=== PATIENT | male | born 1980 | race Caucasian/White ===

== ENCOUNTER → 2020-05-23 11:02 | Outpatient (BNVA) | payer OTHER, SELFPAY | PROVIDERS: Family Provider Internal Medicine; PCP Occupational Therapy Assistant; Visit Provider Internal Medicine Rheumatology | DX: M35.9 Systemic involvement of connective tissue, unspecified (principal); Z79.899 Other long term (current) drug therapy; R76.8 Other specified abnormal immunological findings in serum; D47.2 Monoclonal gammopathy; R60.0 Localized edema | CPT/HCPCS: 36415; 80076; 82565; 85025; 85651; 86140; 99214 ==

== ENCOUNTER 2020-06-01 08:19 | Outpatient (CLI) | payer OTHER, SELFPAY ==
[2020-06-01 09:13] LABS: Basophils # 0.1 10^3/uL (0.0-0.1); Basophils % 1.3 %; Eosinophils # 0.2 10^3/uL (0.0-0.8); Eosinophils % 2.7 %; Hemoglobin 14.5 g/dL (11.7-16.6); Lymphocytes # 2.2 10^3/uL (0.8-4.8); Lymphocytes % 31.3 %; Mean Platelet Volume 12.3 fL (7.4-10.4); Monocytes # 0.9 10^3/uL (0.2-0.9); Monocytes % 12.9 %; Neutrophils # 3.64 10^3/uL (1.8-7.7); Neutrophils % 51.5 %; Nucleated Red Blood Cells % 0 %; Platelet Count 284 10^3/cmm (130-400); Red Blood Count 4.68 10^6/uL (4.1-5.3); Red Cell Distribution Width 13.1 % (12.1-15.1); White Blood Count 7.1 10^3/uL (4.0-10.0)
[2020-06-01 09:33] LABS: Alanine Aminotransferase 51 U/L (0-41); Albumin Level 4.6 g/dL (3.5-5.2); Alkaline Phosphatase 63 IU/L (40-130); Anion Gap 16.1 (5-19); Aspartate Amino Transferase 42 U/L (0-40); Blood Urea Nitrogen 15 mg/dL (6-20); Calcium 9.6 mg/dL (8.5-10.5); Carbon Dioxide 26 mmol/L (22-29); Chloride 101 mmol/L (98-107); Globulin 3.6 g/dL (1.3-4.6); Glomerular Filtration Rate 93.5 mL/min (90-130); Glucose 111 mg/dL (65-115); Immunoglobulin IGA 203 mg/dL (70-400); Immunoglobulin IGG 1776 mg/dL (700-1600); Immunoglobulin IGM 62 mg/dL (40-230); Lactate Dehydrogenase 265 U/L (135-225); Osmolality Calculated 290 mOsm/kg (285-295); Potassium 4.1 mmol/L (3.5-5.1); Sodium 139 mmol/L (136-145); Total Bilirubin 0.2 mg/dL (0.15-1.2); Total Protein 8.2 g/dL (6.6-8.7)
[2020-06-02 07:48] LABS: PROTEIN, TOTAL 7.6 g/dL (6.1-8.1)
[2020-06-02 12:22] LABS: KAPPA LIGHT CHAIN, FREE, SERUM 22.6 mg/L (3.3-19.4); KAPPA/LAMBDA LIGHT CHAINS FREE 1.78 (0.26-1.65); LAMBDA LIGHT CHAIN, FREE, SERU 12.7 mg/L (5.7-26.3)
[2020-06-02 13:22] LABS: ABNORMAL PROTEIN BAND 1 1.2 g/dL (NONE DETECTED); ALBUMIN 4.3 g/dL (3.8-4.8); ALPHA 1 GLOBULIN 0.3 g/dL (0.2-0.3); ALPHA 2 GLOBULIN 0.7 g/dL (0.5-0.9); BETA 1 GLOBULIN 0.4 g/dL (0.4-0.6); BETA 2 GLOBULIN 0.3 g/dL (0.2-0.5); GAMMA GLOBULIN 1.6 g/dL (0.8-1.7)
== END 2020-06-01 08:20 | disposition home or self-care (01) ==
LOC: ONCMED 08:22
PROVIDERS: PCP Internal Medicine; Visit Provider Internal Medicine Medical Oncology
DX: D47.2 Monoclonal gammopathy (principal)
CPT/HCPCS: 36415; 80053; 82784; 83615; 83883; 84155; 84165; 85025

== ENCOUNTER 2020-06-13 15:08 | Outpatient (CLI) | payer OTHER, SELFPAY ==
--- NOTE | 2020-06-17 13:39 | ONC FU_ITS ---
Dr. Medina Patient Follow-Up Note Patient: Larry De La Cruz Unit #: [id number]: 1980 Dicatated By: Kevan Medina M.D.Date of Visit:Jun 13, 2020 Onc Med Follow-up/Prog Note Chief Complaint: Monoclonal gammopathy. History of Present Illness: This is a 39 year-old man with IgG kappa monoclonal gammopathy. He had been seen by Dr. Bellamy in July 2016 because of neuropathy symptoms. At that time he also was having significant joint pain and stiffness. His evaluation for neuropathy included a serum protein electrophoresis which showed an IgG kappa monoclonal protein quantitating at 0.95 g/dL. He also had a significantly elevated RA titer at 28.9 IU/mL. His DNA profile showed an elevated PSYCHOLOGY TECH IgG antibody of greater than 100.0 EU/mL. He was seen by Dr. Ruthann Arthur for rheumatology consultation 10/16/2016. He was diagnosed at that time with rheumatoid arthritis and possible mixed connective tissue disease. He began treatment with methotrexate with subsequent addition of hydroxychloroquine. He was seen here by Dr. Antonio on 11/12/2016 for evaluation of the monoclonal gammopathy. His subsequent laboratory evaluation on 11/28/2016 included CBC showing hemoglobin 15.0 g, white blood cell count 8000, and platelet count 238,000. Comprehensive metabolic profile showed normal renal function BUN 18 and creatinine 1.0 mg/dL. The calcium was 8.8 mg/dL with albumin 4.1 g/dL. Repeat protein electrophoresis showed IgG kappa monoclonal protein quantitating at 1.03 g/dL. Quantitative immunoglobulins included IgG 1800.00 mg/dL, IgA 170.00 mg/dL, and IgM 43.00 mg/dL. The free kappa light chain was elevated at 19.81 mg/L with the free lambda 10.35 mg/L and mildly elevated kappa/lambda ratio at 1.91. His 24-hour urine showed a total protein excretion of 105 mg with no monoclonal protein detected. Skeletal survey showed no radiographic evidence of multiple myeloma. I had seen him for a follow-up visit on 12/19/2016. Given those findings, I did not feel there was any definite indication for bone marrow aspiration/biopsy, and I just recommended observation/expectant management. As of his follow-up visit on 05/10/2019 he appeared stable clinically. His repeat protein electrophoresis on 05/17/2020 showed his M protein stable at 1.1 g/dL. He has no other medical illnesses. His surgeries include splenectomy in 1996 and tonsillectomy in 1997. He had surgery for Meckel's diverticulum in 1991. He is a nonsmoker. He is seen for a scheduled visit. He has been feeling pretty good generally, though he says his energy is not as great. He is able to do light work. ECOG score is 1. He has good appetite. He has not had fever. He occasionally has sweating at night. He has some sinus drainage with occasional cough. He does not complain of shortness of breath or chest pain. He has acid reflux, but it is managed adequately with famotidine. He has no other GI or complaints. He has some joint pain, but not a lot. He has no focal neurologic symptoms. Medications: Celecoxib 1 (200 mg) Capsule Oral daily PRN, Multivitamin Adult 1 Tablet Oral daily, Plaquenil 1 Tablet (of 200 mg) Oral daily, Testone CIK (200 mg/mL) Intramuscular Take as Directed, Vitamin D 1 Tablet Oral daily Allergies: Compazine and Reglan. Review of Systems: Constitutional - His energy is pretty good, but less than normal. He is able to light to moderate outside work. His appetite is good and his weight is stable. No fever, night sweats, or hot flashes. ECOG score is 1, ENMT - He has chronic sinus congestion/drainage. No mouth sores. No sore throat or difficulty swallowing, Hematologic/Lymphatic - No abnormal bruising or bleeding, Respiratory - No shortness of breath. He has an occasional cough. No pleuritic pain or hemoptysis, Cardiovascular - No angina pain. No palpitations, Gastrointestinal - No nausea or vomiting. His acid reflux is adequately controlled with famotidine. No diarrhea or constipation. No blood in the stool or black stools, Genitourinary (M) - No dysuria or hematuria. No urinary frequency. No urgency or incontinence, Musculoskeletal - He has generalized joint pain, Integumentary - No skin complication, Neurologic - No headache or dizziness. No numbness or tingling. No other focal neurologic symptoms, Psychiatric - No anxiety or depression. No insomnia. Vital Signs: Performed on Jun 13, 2020 15:26 Height - 71.00 in Weight - 250.8 lbs (LOW) BSA - 2.32 sq.m BMI - 34.98 (HIGH) Temperature - 97.5 F (LOW) Pulse - 74 /min Respiration - 17 /min BP - 167/90 mm(hg) (HIGH) O2 Sat - 97 % Pain - 0 Physical Examination: Constitutional - He looks good generally, Eyes - Sclerae nonicteric. Conjunctivae clear, ENMT - No lesions noted in the oral cavity, Hematologic/Lymphatic - No cervical, clavicular, or axillary adenopathy, Respiratory - Lungs are clear with good air movement bilaterally, Cardiovascular - Heart rhytm is regular. There is no murmur, gallop, or rub noted, Abdomen - Soft. Liver is not enlarged. There is no abdominal mass or ascites noted and there is no inguinal adenopathy, Extremities - No edema, Neurologic - No focal neurologic deficits noted. Lab/Imaging: Test performed on Jun 01, 2020 08:44 LDH (Total) 265 U/L Sodium 139 mmol/L Potassium 4.1 mmol/L Chloride 101 mmol/L CO2 26 mmol/L Anion Gap 16.1 BUN 15 mg/dL Creatinine 0.9 mg/dL Cr Clearance (Est) 176.2600 mL/min eGFR 93.5 mL/min Glucose 111 mg/dL Osmolality - Calculated 290 mOsm/kg Calcium 9.6 mg/dL Protein, Total 8.2 g/dL Albumin 4.6 g/dL Globulin 3.6 g/dL Bilirubin, Total 0.2 mg/dL ALT (SGPT) 51 U/L AST (SGOT) 42 U/L Alkaline Phosphatase 63 IU/L WBC 7.1 10 3/uL RBC 4.68 10 6/uL HGB 14.5 g/dL HCT 44.0 % MCV 94.0 fL MCH 31.0 pg MCHC 33.0 g/dL RDW 13.1 % Platelet Count 284 10 3/cmm MPV 12.3 fL Neutrophils 3.64 10 3/uL Lymphocytes 2.2 10 3/uL Monocytes 0.9 10 3/uL Eosinophils 0.2 10 3/uL Basophils 0.1 10 3/uL Neutrophil % 51.5 % Lymphocyte % 31.3 % Monocyte % 12.9 % Eosinophil % 2.7 % Basophils % 1.3 % NRBC % 0 % IgG 1776 mg/dL [place] Free Light Chains 22.6 mg/L Lambda Free Light Chains 12.7 mg/L IgA 203 mg/dL [place]/Lambda Free Ratio 1.78 IgM 62 mg/dL His protein electrophoresis shows M protein stable at 1.2 g/dL. Impression: 1. Patient with IgG kappa monoclonal gammopathy of undetermined significance. It was discovered in association with an autoimmune disorder. There wss no clinical evidence to suggest myelomahim a and observation/expectant management was recommended. 2. He was diagnosed with rheumatoid arthritis and possible mixed connective tissue disease, which is being adequately managed with methotrexate and hydroxychloroquine. 3. He has a history of previous splenectomy. During follow-up he has been doing well with no significant increase in his M protein and no evidence clinically of myeloma. Plan: He remains on observation/expectant management. I will see him again in one year. Signed By: Kevan Medina M.D. <<Signature on File>>
== END 2020-06-13 15:09 | disposition home or self-care (01) ==
LOC: ONCMED 15:10
PROVIDERS: PCP Internal Medicine; Visit Provider Internal Medicine Medical Oncology
DX: D47.2 Monoclonal gammopathy (principal); M06.9 Rheumatoid arthritis, unspecified; Z90.81 Acquired absence of spleen; Z79.899 Other long term (current) drug therapy
CPT/HCPCS: G0463

== ENCOUNTER → 2020-11-21 08:55 | Outpatient (BNVA) | payer OTHER, SELFPAY | PROVIDERS: PCP Internal Medicine; Visit Provider Internal Medicine Rheumatology | DX: R76.8 Other specified abnormal immunological findings in serum (principal); M19.90 Unspecified osteoarthritis, unspecified site; Z79.899 Other long term (current) drug therapy; R60.0 Localized edema; D47.2 Monoclonal gammopathy | CPT/HCPCS: 99214 ==

== ENCOUNTER 2020-11-21 09:47 | Outpatient (CLI) | payer OTHER, SELFPAY ==
[2020-11-21 10:28] LABS: Basophils # 0.1 10^3/uL (0.0-0.1); Basophils % 2.2 %; Eosinophils # 0.2 10^3/uL (0.0-0.8); Eosinophils % 3.2 %; Hematocrit 45.2 % (42.0-52.0); Hemoglobin 15.2 g/dL (11.7-16.6); Lymphocytes # 2.1 10^3/uL (0.8-4.8); Lymphocytes % 35.8 %; Mean Corpuscular HGB Conc 33.6 g/dL (30.0-36.0); Mean Corpuscular Volume 92.2 fL (80-94); Mean Platelet Volume 11.6 fL (7.4-10.4); Monocytes % 16.8 %; Neutrophils # 2.48 10^3/uL (1.8-7.7); Neutrophils % 41.7 %; Nucleated Red Blood Cells % 0 %; Platelet Count 287 10^3/cmm (130-400)
[2020-11-21 10:44] LABS: Alanine Aminotransferase 41 U/L (0-41); Albumin Level 4.6 g/dL (3.5-5.2); Alkaline Phosphatase 54 IU/L (40-130); C Reactive Protein 2.1 mg/L (0.0-4.9); Globulin 3.6 g/dL (1.3-4.6); Glomerular Filtration Rate 124.3 mL/min (90-130); Total Bilirubin 0.4 mg/dL (0.15-1.2); Total Protein 8.2 g/dL (6.6-8.7)
[2020-11-21 10:59] LABS: Aspartate Amino Transferase 37 U/L (0-40)
[2020-11-21 11:10] LABS: Slide Review Slide Review Perform
== END 2020-11-21 09:48 | disposition home or self-care (01) ==
LOC: LAB 09:55
PROVIDERS: PCP Internal Medicine; Visit Provider Internal Medicine Rheumatology
DX: R76.8 Other specified abnormal immunological findings in serum (principal); Z79.899 Other long term (current) drug therapy
CPT/HCPCS: 36415; 80076; 82565; 85025; 86140

== ENCOUNTER → 2021-05-22 09:20 | Outpatient (BNVA) | payer OTHER, SELFPAY | PROVIDERS: PCP Internal Medicine; Visit Provider Internal Medicine Rheumatology | DX: R76.8 Other specified abnormal immunological findings in serum (principal); M19.90 Unspecified osteoarthritis, unspecified site; Z79.899 Other long term (current) drug therapy; R60.0 Localized edema; D47.2 Monoclonal gammopathy | CPT/HCPCS: 99214 ==

== ENCOUNTER 2021-05-30 14:07 | Outpatient (CLI) | payer OTHER, SELFPAY ==
[2021-05-30 14:59] LABS: Basophils # 0.1 10^3/uL (0.0-0.1); Basophils % 1.8 %; Eosinophils # 0.2 10^3/uL (0.0-0.8); Eosinophils % 2.9 %; Hematocrit 42.7 % (42.0-52.0); Hemoglobin 14.6 g/dL (11.7-16.6); Lymphocytes # 2.1 10^3/uL (0.8-4.8); Lymphocytes % 31.9 %; Mean Corpuscular HGB Conc 34.2 g/dL (30.0-36.0); Mean Corpuscular Hemoglobin 31.9 pg (28.0-34.0); Mean Corpuscular Volume 93.2 fl (80-94); Mean Platelet Volume 12.5 fL (7.4-10.4); Monocytes % 15.6 %; Neutrophils # 3.11 10^3/uL (1.8-7.7); Neutrophils % 47.5 %; Nucleated Red Blood Cells % 0 %; Platelet Count 262 10^3/cmm (130-400); Red Blood Count 4.58 10^6/uL (4.1-5.3); Red Cell Distribution Width 13.2 % (12.1-15.1); White Blood Count 6.6 10^3/uL (4.0-10.0)
[2021-05-30 15:28] LABS: Alanine Aminotransferase 29 U/L (0-41); Albumin Level 4.4 g/dL (3.5-5.2); Albumin Level 4.5 g/dL (3.5-5.2); Alkaline Phosphatase 53 IU/L (40-130); Alkaline Phosphatase 55 IU/L (40-130); Anion Gap 15.8 (5-19); Aspartate Amino Transferase 26 U/L (0-40); Aspartate Amino Transferase 29 U/L (0-40); Blood Urea Nitrogen 13 mg/dL (6-20); C Reactive Protein 2.1 mg/L (0.0-4.9); Calcium 9.3 mg/dL (8.5-10.5); Carbon Dioxide 24 mmol/L (22-29); Chloride 102 mmol/L (98-107); Globulin 3.5 g/dL (1.3-4.6); Globulin 3.7 g/dL (1.3-4.6); Glomerular Filtration Rate 106.5 mL/min (90-130); Glucose 87 mg/dL (65-115); Immunoglobulin IGA 202 mg/dL (70-400); Immunoglobulin IGG 1770 mg/dL (700-1600); Immunoglobulin IGM 65 mg/dL (40-230); Lactate Dehydrogenase 181 U/L (135-225); Osmolality Calculated 285 mOsm/kg (285-295); Potassium 3.8 mmol/L (3.5-5.1); Sodium 138 mmol/L (136-145); Total Bilirubin 0.3 mg/dL (0.15-1.2); Total Bilirubin 0.4 mg/dL (0.15-1.2); Total Protein 7.9 g/dL (6.6-8.7); Total Protein 8.2 g/dL (6.6-8.7)
[2021-05-31 06:03] LABS: PROTEIN, TOTAL 7.8 g/dL (6.1-8.1)
[2021-05-31 13:02] LABS: KAPPA LIGHT CHAIN, FREE, SERUM 24.3 mg/L (3.3-19.4); KAPPA/LAMBDA LIGHT CHAINS FREE 1.83 (0.26-1.65); LAMBDA LIGHT CHAIN, FREE, SERU 13.3 mg/L (5.7-26.3)
[2021-05-31 15:41] LABS: ABNORMAL PROTEIN BAND 1 1.2 g/dL (NONE DETECTED); ALBUMIN 4.5 g/dL (3.8-4.8); ALPHA 1 GLOBULIN 0.3 g/dL (0.2-0.3); ALPHA 2 GLOBULIN 0.6 g/dL (0.5-0.9); BETA 1 GLOBULIN 0.4 g/dL (0.4-0.6); BETA 2 GLOBULIN 0.4 g/dL (0.2-0.5); GAMMA GLOBULIN 1.7 g/dL (0.8-1.7)
== END 2021-05-30 14:08 | disposition home or self-care (01) ==
PROVIDERS: Internal Medicine Rheumatology; PCP Internal Medicine; Visit Provider Internal Medicine Medical Oncology
DX: D47.2 Monoclonal gammopathy (principal)
CPT/HCPCS: 36415; 80053; 80076; 82784; 83615; 83883; 84155; 84165; 85025; 86140

== ENCOUNTER 2021-06-04 10:09 | Outpatient (CLI) | payer OTHER, SELFPAY ==
[2021-06-05 12:47] LABS: CREATININE, 24 HOUR URINE 2.12 g/24 h (0.50-2.15); PROTEIN, TOTAL, 24 HR UR 118 mg/24 h (<150); Protein/Creatinine Ratio 0.056 (< OR = 0.114); Protein/Creatinine Ratio 56 mg/g creat (< OR = 114)
[2021-06-06 15:37] LABS: ALBUMIN 0 %; ALPHA-1-GLOBULINS 0 %; ALPHA-2-GLOBULINS 0 %; BETA GLOBULINS 0 %; GAMMA GLOBULINS 0 %
== END 2021-06-04 10:10 | disposition home or self-care (01) ==
LOC: ONCMED 10:11
PROVIDERS: PCP Internal Medicine; Visit Provider Internal Medicine Medical Oncology
DX: D47.2 Monoclonal gammopathy (principal)
CPT/HCPCS: 84156; 84166

== ENCOUNTER 2021-06-14 09:26 | Outpatient (CLI) | payer OTHER, SELFPAY ==
--- NOTE | 2021-06-14 10:02 | ONC FU_ITS ---
Dr. Medina Patient Follow-Up Note Patient: Larry De La Cruz Unit #: [id number]: 1980 Dicatated By: Kevan Medina M.D.Date of Visit:Jun 14, 2021 Onc Med Follow-up/Prog Note Chief Complaint: Monoclonal gammopathy. History of Present Illness: This is a 40 year-old man with IgG kappa monoclonal gammopathy. He had been seen by Dr. Bellamy in July 2016 because of neuropathy symptoms. At that time he also was having significant joint pain and stiffness. His evaluation for neuropathy included a serum protein electrophoresis which showed an IgG kappa monoclonal protein quantitating at 0.95 g/dL. He also had a significantly elevated RA titer at 28.9 IU/mL. His DNA profile showed an elevated PRINT [employer]ER IgG antibody of greater than 100.0 EU/mL. He was seen by Dr. Ruthann Arthur for rheumatology consultation 10/16/2016. He was diagnosed at that time with rheumatoid arthritis and possible mixed connective tissue disease. He began treatment with methotrexate with subsequent addition of hydroxychloroquine. He was seen here by Dr. Antonio on 11/12/2016 for evaluation of the monoclonal gammopathy. His subsequent laboratory evaluation on 11/28/2016 included CBC showing hemoglobin 15.0 g, white blood cell count 8000, and platelet count 238,000. Comprehensive metabolic profile showed normal renal function BUN 18 and creatinine 1.0 mg/dL. The calcium was 8.8 mg/dL with albumin 4.1 g/dL. Repeat protein electrophoresis showed IgG kappa monoclonal protein quantitating at 1.03 g/dL. Quantitative immunoglobulins included IgG 1800.00 mg/dL, IgA 170.00 mg/dL, and IgM 43.00 mg/dL. The free kappa light chain was elevated at 19.81 mg/L with the free lambda 10.35 mg/L and mildly elevated kappa/lambda ratio at 1.91. His 24-hour urine showed a total protein excretion of 105 mg with no monoclonal protein detected. Skeletal survey showed no radiographic evidence of multiple myeloma. I had seen him for a follow-up visit on 12/19/2016. Given those findings, I did not feel there was any definite indication for bone marrow aspiration/biopsy, and I just recommended observation/expectant management. As of his follow-up visit on 05/10/2019 he appeared stable clinically. His repeat protein electrophoresis on 05/17/2020 showed his M protein stable at 1.1 g/dL. As of 06/01/2020 the M protein remained stable at 1.2 g/dL. He continued expectant management. He has no other medical illnesses. His surgeries include splenectomy in 1996 and tonsillectomy in 1997. He had surgery for Meckel's diverticulum in 1991. He is a nonsmoker. He is seen for a followup visit. He has been feeling pretty good generally. His energy is okay, but he wishes that it could be better. Some days he feels wore out. ECOG score is 1. He has good appetite. He has no fever or night sweats. He has quite a bit of sinus drainage. He has just occasional cough. He does not complain of shortness of breath or chest pain. He has been having acid reflux symptoms and he thinks he may have an ulcer. He has been taking famotidine at bedtime. It helps during the night, but not so much in the daytime. Bowel function has been adequate with psyllium fiber. Bladder function also remains adequate. His joints lately have been pretty good. He has just occasional headache. He does not complain of dizziness, and he has no focal neurologic symptoms. Medications: Celecoxib 1 (200 mg) Capsule Oral daily PRN, Multivitamin Adult 1 Tablet Oral daily, Plaquenil 1 Tablet (of 200 mg) Oral daily, Red Yeast Rice Extract (600 mg) Tablet Oral daily, Vitamin D 1 Tablet Oral daily Allergies: Compazine and Reglan. Vital Signs: Performed on Jun 14, 2021 09:37 Height - 71.00 in Weight - 245.2 lbs (LOW) BSA - 2.30 sq.m BMI - 34.20 (HIGH) Temperature - 96.6 F (LOW) Pulse - 69 /min Respiration - 16 /min BP - 146/88 mm(hg) (HIGH) O2 Sat - 99 % Pain - 0 Fatigue - 0 Physical Examination: Constitutional - He looks good generally, Eyes - Sclerae nonicteric. Conjunctivae clear, ENMT - No lesions noted in the oral cavity, Hematologic/Lymphatic - No cervical, clavicular, or axillary adenopathy, Respiratory - Lungs are clear with good air movement bilaterally, Cardiovascular - Heart rhytm is regular. There is no murmur, gallop, or rub noted, Abdomen - Soft. Liver is not enlarged. There is no abdominal mass or ascites noted and there is no inguinal adenopathy, Extremities - No edema, Neurologic - No focal neurologic deficits noted. Lab/Imaging: Test performed on Jun 04, 2021 10:30 U Protein, 24hr 118 mg/24 h U Protein/Creat Ratio 0.056 U Albumin % 0 % UPE Interpretation SEE NOTE Agarose electrophoresis of urine reveals that quantities of albumin and globulin fractions are below the level of detection by this method. No abnormal protein is observed. THIS TEST WAS PERFORMED AT: [employer] [place] [id number] [place] [id number] [place] NICHOLAS DO,MPH U Creatinine, 24 hr 2.12 g/24 h U [id number] 0 % U [id number] 0 % U Beta Globulin 0 % U Gamma Globulin 0 % Test performed on May 30, 2021 14:37 LDH (Total) 181 U/L Sodium 138 mmol/L Potassium 3.8 mmol/L Chloride 102 mmol/L CO2 24 mmol/L Anion Gap 15.8 BUN 13 mg/dL Creatinine 0.8 mg/dL Cr Clearance (Est) 195.5300 mL/min eGFR 106.5 mL/min Glucose 87 mg/dL Osmolality - Calculated 285 mOsm/kg Calcium 9.3 mg/dL Protein, Total 8.2 g/dL Albumin 4.5 g/dL Globulin 3.7 g/dL Bilirubin, Total 0.4 mg/dL ALT (SGPT) 29 U/L AST (SGOT) 26 U/L Alkaline Phosphatase 53 IU/L WBC 6.6 10 3/uL RBC 4.58 10 6/uL HGB 14.6 g/dL HCT 42.7 % MCV 93.2 fl MCH 31.9 pg MCHC 34.2 g/dL RDW 13.2 % Platelet Count 262 10 3/cmm MPV 12.5 fL Neutrophils 3.11 10 3/uL Lymphocytes 2.1 10 3/uL Monocytes 1.0 10 3/uL Eosinophils 0.2 10 3/uL Basophils 0.1 10 3/uL Neutrophil % 47.5 % Lymphocyte % 31.9 % Monocyte % 15.6 % Eosinophil % 2.9 % Basophils % 1.8 % NRBC % 0 % [place] Free Light Chains 24.3 mg/L Lambda Free Light Chains 13.3 mg/L IgA 202 mg/dL [place]/Lambda Free Ratio 1.83 Problem List: 1. Monoclonal gammopathy of undetermined significance. 2. He was diagnosed with rheumatoid arthritis and possible mixed connective tissue disease. 3. GERD. 4. He has a history of previous splenectomy. Problems Addressed with this Encounter and Plan: 1. Patient with IgG kappa monoclonal gammopathy of undetermined significance. It was discovered in association with an autoimmune disorder. There was no clinical evidence to suggest myeloma, and expectant management was recommended. During follow-up his M protein has remained stable, currently at 1.2 g/dL. His overall clinical status also remained stable. Thus far there has been no clinical evidence for myeloma. He remains on observation/expectant management. He will be given a flu shot today. He will be scheduled for a follow-up visit in one year. 2. He has been having fairly significant GERD symptoms, not completely managed with famotidine once a day. I will increase his prescription to twice a day. Signed By: Kevan Medina M.D. <<Signature on File>>
== END 2021-06-14 09:27 | disposition home or self-care (01) ==
PROVIDERS: PCP Internal Medicine; Visit Provider Internal Medicine Medical Oncology
DX: D47.2 Monoclonal gammopathy (principal); M06.9 Rheumatoid arthritis, unspecified; K21.9 Gastro-esophageal reflux disease without esophagitis; Z90.81 Acquired absence of spleen; Z79.899 Other long term (current) drug therapy
CPT/HCPCS: 90471; 90686; G0463

== ENCOUNTER 2021-12-11 12:48 | Outpatient (CLI) | payer OTHER, SELFPAY ==
[2021-12-11 13:44] LABS: Basophils # 0.1 10^3/uL (0.0-0.1); Basophils % 1.5 %; Eosinophils # 0.2 10^3/uL (0.0-0.8); Hematocrit 42.8 % (42.0-52.0); Hemoglobin 14.4 g/dL (11.7-16.6); Lymphocytes # 2.1 10^3/uL (0.8-4.8); Lymphocytes % 34.8 %; Mean Corpuscular HGB Conc 33.6 g/dL (30.0-36.0); Mean Corpuscular Hemoglobin 31.3 pg (28.0-34.0); Mean Platelet Volume 12.4 fL (7.4-10.4); Monocytes # 1.1 10^3/uL (0.2-0.9); Monocytes % 18.4 %; Neutrophils # 2.52 10^3/uL (1.8-7.7); Neutrophils % 42.1 %; Nucleated Red Blood Cells % 0 %; Platelet Count 258 10^3/cmm (130-400); Red Cell Distribution Width 13.5 % (12.1-15.1)
[2021-12-11 14:11] LABS: Alanine Aminotransferase 41 U/L (0-41); Albumin Level 4.5 g/dL (3.5-5.2); Alkaline Phosphatase 72 IU/L (40-130); Aspartate Amino Transferase 36 U/L (0-40); Globulin 3.8 g/dL (1.3-4.6); Glomerular Filtration Rate 81.9 mL/min (90-130); Total Bilirubin 0.3 mg/dL (0.15-1.2); Total Protein 8.3 g/dL (6.6-8.7)
[2021-12-11 15:07] LABS: Slide Review Slide Review Perform
== END 2021-12-11 12:49 | disposition home or self-care (01) ==
PROVIDERS: PCP Internal Medicine; Visit Provider Internal Medicine Rheumatology
DX: R76.8 Other specified abnormal immunological findings in serum (principal); Z79.899 Other long term (current) drug therapy
CPT/HCPCS: 36415; 80076; 82565; 85025; 86140

== ENCOUNTER 2022-05-17 17:14 | Outpatient (CLI) | payer OTHER, SELFPAY ==
--- NOTE | 2022-05-17 17:40 | XR_ITS ---
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 No findings of bridging or fusion. XR/XR sacroiliac jts m 3V [id number] IMPRESSION: No findings of sacroiliitis.
--- NOTE | 2022-05-17 17:40 | XR_ITS ---
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 No significant vertebral body abnormality Rudimentary disc at S1-S2. Mild narrowing of the disc spaces L1-L4. Moderate narrowing of the disc spaces L4-S1. 4 mm of anterolisthesis of L5 in relation to L4. 4 mm of anterolisthesis of S1 in relation to L5. XR/XR lumbar spine 2-3V* [id number] IMPRESSION: Degenerative spondylosis of the lumbar spine as above.
[2022-05-17 17:58] LABS: Basophils # 0.1 10^3/uL (0.0-0.1); Basophils % 1.9 %; Eosinophils # 0.2 10^3/uL (0.0-0.8); Eosinophils % 2.5 %; Hematocrit 42.2 % (42.0-52.0); Hemoglobin 14.2 g/dL (11.7-16.6); Lymphocytes # 2.7 10^3/uL (0.8-4.8); Lymphocytes % 35.7 %; Mean Corpuscular HGB Conc 33.6 g/dL (30.0-36.0); Mean Corpuscular Hemoglobin 31.6 pg (28.0-34.0); Mean Corpuscular Volume 93.8 fl (80-94); Mean Platelet Volume 12.5 fL (7.4-10.4); Monocytes # 1.3 10^3/uL (0.2-0.9); Monocytes % 16.7 %; Neutrophils # 3.25 10^3/uL (1.8-7.7); Neutrophils % 43.1 %; Nucleated Red Blood Cells % 0 %; Platelet Count 243 10^3/cmm (130-400); Red Cell Distribution Width 13.6 % (12.1-15.1); White Blood Count 7.5 10^3/uL (4.0-10.0)
[2022-05-17 18:15] LABS: Slide Review Slide Review Perform
[2022-05-17 18:17] LABS: Erythrocyte Sedimentation Rate 3 mm/hr (0-10)
[2022-05-17 18:35] LABS: Alanine Aminotransferase 34 U/L (0-41); Albumin Level 4.3 g/dL (3.5-5.2); Alkaline Phosphatase 68 U/L (40-130); Aspartate Amino Transferase 26 U/L (0-40); Globulin 3.6 g/dL (1.3-4.6); Total Bilirubin 0.3 mg/dL (0.15-1.2); Total Protein 7.9 g/dL (6.6-8.7)
== END 2022-05-17 17:15 | disposition home or self-care (01) ==
PROVIDERS: PCP Internal Medicine; Visit Provider Internal Medicine Rheumatology
DX: M19.90 Unspecified osteoarthritis, unspecified site (principal); Z79.899 Other long term (current) drug therapy; M47.816 Spondylosis without myelopathy or radiculopathy, lumbar region
CPT/HCPCS: 72100; 72202; 80076; 82565; 85025; 85651; 86140

== ENCOUNTER → 2022-10-16 12:20 | Outpatient (BNVA) | payer OTHER, SELFPAY | PROVIDERS: PCP Internal Medicine; Visit Provider Internal Medicine Rheumatology | DX: M19.90 Unspecified osteoarthritis, unspecified site (principal); Z79.899 Other long term (current) drug therapy | CPT/HCPCS: 36415; 80076; 82565; 85025; 86140 ==

== ENCOUNTER 2022-12-09 14:05 | Oncology outpatient (recurring) (ONCR) | payer OTHER, SELFPAY ==
[2022-12-09 15:01] LABS: Basophils # 0.1 10^3/uL (0.0-0.1); Basophils % 1.7 %; Eosinophils # 0.2 10^3/uL (0.0-0.8); Eosinophils % 2.4 %; Hematocrit 43.2 % (42.0-52.0); Hemoglobin 14.4 g/dL (11.7-16.6); Lymphocytes # 2.9 10^3/uL (0.8-4.8); Lymphocytes % 41.5 %; Mean Corpuscular HGB Conc 33.3 g/dL (30.0-36.0); Mean Corpuscular Hemoglobin 30.9 pg (28.0-34.0); Mean Corpuscular Volume 92.7 fl (80-94); Mean Platelet Volume 11.2 fL (7.4-10.4); Monocytes # 0.8 10^3/uL (0.2-0.9); Monocytes % 11.8 %; Neutrophils # 2.97 10^3/uL (1.8-7.7); Neutrophils % 42.3 %; Nucleated Red Blood Cells % 0 %; Platelet Count 362 10^3/cmm (130-400); Red Blood Count 4.66 10^6/uL (4.1-5.3); Red Cell Distribution Width 13.3 % (12.1-15.1)
[2022-12-09 15:17] LABS: Alanine Aminotransferase 34 U/L (0-41); Albumin Level 4.6 g/dL (3.5-5.2); Alkaline Phosphatase 64 U/L (40-130); Anion Gap 13.8 (5-19); Aspartate Amino Transferase 26 U/L (0-40); Blood Urea Nitrogen 14 mg/dL (6-20); Calcium 9.7 mg/dL (8.5-10.5); Carbon Dioxide 27 mmol/L (22-29); Chloride 100 mmol/L (98-107); Creatinine Clr Calc Pharmacy 133.4415; Globulin 3.6 g/dL (1.3-4.6); Glomerular Filtration Rate 92.1 mL/min (90-130); Glucose 96 mg/dL (65-115); Immunoglobulin IGA 293 mg/dL (70-400); Immunoglobulin IGG 1940 mg/dL (700-1600); Immunoglobulin IGM 67 mg/dL (40-230); Osmolality Calculated 284 mOsm/kg (285-295); Potassium 3.8 mmol/L (3.5-5.1); Sodium 137 mmol/L (136-145); Total Bilirubin 0.4 mg/dL (0.15-1.2); Total Protein 8.2 g/dL (6.6-8.7)
[2022-12-09 15:19] LABS: Slide Review Slide Review Perform
[2022-12-10 13:04] LABS: PROTEIN, TOTAL 8.1 g/dL (6.1-8.1)
[2022-12-10 13:30] LABS: LAMBDA LIGHT CHAIN, FREE, SERU 16.8 mg/L (5.7-26.3)
[2022-12-10 15:30] LABS: ABNORMAL PROTEIN BAND 1 1.2 g/dL (NONE DETECTED); ALBUMIN 4.5 g/dL (3.8-4.8); ALPHA 1 GLOBULIN 0.3 g/dL (0.2-0.3); ALPHA 2 GLOBULIN 0.8 g/dL (0.5-0.9); BETA 1 GLOBULIN 0.4 g/dL (0.4-0.6); BETA 2 GLOBULIN 0.4 g/dL (0.2-0.5); GAMMA GLOBULIN 1.8 g/dL (0.8-1.7)
== END 2022-12-15 23:59 | disposition home or self-care (01) ==
LOC: ONCMED 14:06
PROVIDERS: PCP Internal Medicine; Visit Provider Internal Medicine Medical Oncology
DX: D47.2 Monoclonal gammopathy (principal)
CPT/HCPCS: 36415; 80053; 82784; 83883; 84155; 84165; 85025; 86334

== ENCOUNTER 2022-12-16 11:28 | Oncology outpatient (recurring) (ONCR) | payer OTHER, SELFPAY ==
[2022-12-17 13:29] LABS: CREATININE, 24 HOUR URINE 2.15 g/24 h (0.50-2.15); PROTEIN, TOTAL, 24 HR UR 95 mg/24 h (<150); Protein/Creatinine Ratio 0.044 (<0.100); Protein/Creatinine Ratio 44 mg/g creat (<100)
[2022-12-19 09:04] LABS: ALBUMIN 100 %; ALPHA-1-GLOBULINS 0 %; ALPHA-2-GLOBULINS 0 %; BETA GLOBULINS 0 %; GAMMA GLOBULINS 0 %
== END 2023-01-15 23:59 | disposition home or self-care (01) ==
LOC: ONCMED 11:31
PROVIDERS: PCP Internal Medicine; Visit Provider Internal Medicine Medical Oncology
DX: D47.2 Monoclonal gammopathy (principal)
CPT/HCPCS: 84156; 84166

== ENCOUNTER → 2023-04-14 17:30 | Outpatient (BNVA) | payer OTHER, SELFPAY | PROVIDERS: PCP Internal Medicine; Visit Provider Internal Medicine Rheumatology | DX: Z79.899 Other long term (current) drug therapy (principal); R76.8 Other specified abnormal immunological findings in serum | CPT/HCPCS: 80076; 82565; 85025; 86140 ==

== ENCOUNTER 2023-07-21 18:02 | Emergency (ER) | payer OTHER, SELFPAY ==
[2023-07-21 18:18] VITALS: BP 147/98; PULSE 72; O2SAT 96; BMI 34.2
--- NOTE | 2023-07-21 18:51 | ED_ITS ---
HPI - Back Pain/Injury 2 General: Chief Complaint: Back Pain/Injury Stated Complaint: back pain several days, now left side Time Seen by Provider: 07/21/23 18:42 Source: patient Mode of arrival: ambulatory Limitations: no limitations History of Present Illness: Patient presents emergency department today for evaluation treatment of left abdominal pain and left flank pain. Patient states he also had a little bit of right lower quadrant discomfort several days ago but complains of continued left-sided discomfort now for approximately 5 days. Patient has not had any nausea or vomiting. He has noticed some issues with constipation with his last bowel movement being on Friday. He admits it was a hard stool at that time. Patient is afebrile. Flank pain does affect up into the left mid back near the CVA region. He has no previous history of kidney stones but states his father has had several. He has noticed a slowed urine stream but no hematuria and no dysuria. He states that as a child he had a Meckel's diverticulum but has not had any other GI issues or scopes since that time. Chart review indicates he is followed by rheumatology and is currently on hydroxychloroquine. Review of Systems 2 General: Reports: 10 or more systems reviewed and unremarkable except in HPI and below PFSH ED 2 PFSH: Medical History Swelling of both parotid glands Myopathy Rheumatoid arthritis Encounter for health education Systemic involvement of connective tissue, unspecified Meckels diverticulum MGUS (monoclonal gammopathy of unknown significance) Positive JOS (antinuclear antibody) Rheumatoid factor positive Inflammatory arthritis High risk medication use Immunization counseling Surgical History Hx of tonsillectomy History of splenectomy History of eye surgery Family History Other Diabetes Hypertension Stroke Denies family history of Rheumatoid arthritis CAD (coronary artery disease) Systemic lupus erythematosus (SLE) in adult Cancer Social History Smoking and tobacco/nicotine status: never used tobacco/nicotine Alcohol intake: never Substance/Drug Use: never Physical Exam 2 Const: COMMON NORMALS: no acute distress, patient oriented x3 and alert HENMT: COMMON NORMALS: normocephalic, atraumatic, hearing grossly normal bilaterally and moist oral mucous membranes HEAD & SCALP: normocephalic and atraumatic Eye: COMMON NORMALS: Equal, round and reactive pupils present, EOMs intact bilaterally and conjunctivae normal CONJUNCTIVA: Yes conjunctivae normal P UPIL: Yes Equal, round and reactive pupils present Neck/C-Spine: COMMON NORMALS: full ROM and no JVD Lymph: LYMPHATIC: no lymphadenopathy noted Resp: COMMON NORMALS: normal respiratory effort, No retractions, No use of accessory muscles and clear to auscultation bilaterally AUSCULTATION: clear to auscultation bilaterally Cardio: COMMON NORMALS: no JVD, regular rate and regular rhythm RATE: r egular rate RHYTHM: regular rhythm GI: OTHER: Patient with present bowel sounds on auscultation. Abdomen is soft. Patient with increase in discomfort on palpation to the left lateral and left lower abdominal region. : COMMON NORMALS: Yes no CVA tenderness (Specifically, no left CVA tenderness on percussion) BLADDER/KIDNEY EXAM: Yes no CVA tenderness (Specifically, no left CVA tenderness on percussion) Back/Pelvis: COMMON NORMALS: no CVA tenderness (Specifically, no left CVA tenderness on percussion), no thoracic nor lumbar tenderness and thoraco-lumbar ROM normal Extremity: COMMON NORMALS: normal to inspection, full ROM and capillary refill normal Neuro: COMMON NORMALS: patient oriented x3 SENSORIUM/ORIENTATION: Yes alert Psych: COMMON NORMALS: mental status grossly normal, Normal thought process present, cooperative, normal affect and activity/motor behavior normal T HOUGHT PROCESS: Normal thought process present Skin: COMMON NORMALS: no rashes or lesions noted and no wounds GENERAL SKIN EXAM: no rashes or lesions noted Course 2 Vital Signs: Vital signs: Vital Signs Pulse Rate 79 07/21/23 23:16 Respiratory Rate 16 07/21/23 23:16 Blood Pressure 141/87 07/21/23 23:16 Pulse Oximetry 97 07/21/23 23:16 Oxygen Delivery Me thod Room Air 07/21/23 20:52 MDM - Back Pain/Injury Medical Decision Making Lab work today shows a minimally elevated ALT with normal AST. No elevated white blood cell count. Patient does have a slight decrease in his GFR but no signs of hematuria on UA or infection. Patient was treated with fluids. He was also given Toradol upon his arrival for suspicion of the potential kidney stone or for muscle pull. I was concerned about his kidneys due to the hydroxychloroquine use however, I do not think his kidney function decrease is significant enough to be worried about AMARA or kidney damage at this time. Since there was no confirming findings on the lab work we did have a discussion regarding potential for imaging. Patient did wish to proceed on with imaging which did reveal several findings-mostly incidental. Discussed with him enlarged gallbladder and since he does have a slightly elevated ALT would recommend he continue monitoring. Patient reports no right upper quadrant pain and has no issues with pain specifically with eating. Also discussed with him findings of nodular prostate gland enlargement. He does get regular PSA checks with his primary care doctor yearly and they can continue to monitor. Discussed with him emphysematous changes in the lower lungs. Patient has no current issues with asthma but we discussed symptoms of emphysema which he needs to monitor for and would recommend follow-up with his primary. Patient has a known stable vertebral body compression fracture in the lumbar region. The only finding consistent on his CT to correlate with his symptoms currently would be the suspicion for gastroenteritis. The patient has had symptoms for several days I would expect he would notice improvement over the next couple of days. Explained we will treat symptomatically to help with abdominal discomfort with the Bentyl-first dose provided here in the emergency department. However, I did recommend more of a clear liquid diet or a brat diet for the next couple of days. He was given strict return precautions if he starts having fever, vomiting, black tarry or bright red stools, change or worsening of his abdominal pains. Differential Diagnosis Likely thoracic back pain; Unlikely lumbar radiculopathy, sciatica, strain of lumbar region, pyelonephritis or AAA Labs 07/21/23 20:11 07/21/23 21:01 Radiology Impressions Abdomen/Pelvis CT 07/21/23 21:50 IMPRESSION: 1. Gallbladder enlarged, ultrasound could further characterize this. 2. Gastric wall thickening with prominent fluid in the stomach and small bowel, please correlate for a gastroenteritis. 3. Nodular prostate gland enlargement. 4. L5 vertebral body chronic appearing compression fracture without retropulsion of bony fragments. 5. Emphysematous changes. 6. Left lower lobe atelectasis. 7. Hepatic steatosis. Laboratory Results WBC 5.82 10^3/uL (3.29-11.43) 07/21/23 20:11 RBC 4.64 10^6/uL (3.85-5.65) 07/21/23 20:11 Hgb 14.30 g/dL (11.27-16.99) 07/21/23 20:11 Hct 42.3 % (37-53) 07/21/23 20:11 MCV 91.2 fl (82-101) 07/21/23 20:11 MCH 30.8 pg (27-33) 07/21/23 20:11 MCHC 33.8 g/dL (30-55) 07/21/23 20:11 RDW 19.9 % (12.1-15.1) H 07/21/23 20:11 Plt Count 218 10^3/cmm (157-399) 07/21/23 20:11 MPV 11.9 fL (7.4-10.4) H 07/21/23 20:11 Neut % (Auto) 36.0 % 07/21/23 20:11 Lymph % (Auto) 46.4 % 07/21/23 20:11 [place] % (Auto) 12.7 % 07/21/23 20:11 Eos % (Auto) 2.9 % 07/21/23 20:11 Baso % (Auto) 1.7 % 07/21/23 20:11 Neut # (Auto) 2.09 10^3/uL (1.8-7.7) 07/21/23 20:11 Lymph # (Auto) 2.7 10^3/uL (0.8-4.8) 07/21/23 20:11 [place] # (Auto) 0.7 10^3/uL (0.2-0.9) 07/21/23 20:11 Eos # (Auto) 0.2 10^3/uL (0.0-0.8) 07/21/23 20:11 Baso # (Auto) 0.1 10^3/uL (0.0-0.1) 07/21/23 20:11 Nucleated RBC % (auto) 0 % 07/21/23 20:11 Nucleated RBCs # 0.0 /100WBC 07/21/23 20:11 Sodium 137 mmol/L (136-145) 07/21/23 21:01 Potassium 3.8 mmol/L (3.5-5.1) 07/21/23 21:01 Chloride 101 mmol/L (98-107) 07/21/23 21:01 Carbon Dioxide 25 mmol/L (22-29) 07/21/23 21:01 Anion Gap 14.8 (5-19) 07/21/23 21:01 BUN 12 mg/dL (6-20) 07/21/23 21:01 Creatinine 1.0 mg/dL (0.7-1.2) 07/21/23 21:01 GFR Calculation 81.6 mL/min (90-130) L 07/21/23 21:01 Glucose 98 mg/dL (65-115) 07/21/23 21: Calculated Osmolality 284 mOsm/kg (285-295) L 07/21/23 21:01 Calcium 9.6 mg/dL (8.5-10.5) 07/21/23 21:01 Total Bilirubin 0.4 mg/dL (0.15-1.2) 07/21/23 21:01 AST 37 U/L (0-40) 07/21/23 21:01 ALT 51 U/L (0-41) H 07/21/23 21:01 Alkaline Phosphatase 58 U/L (40-130) 07/21/23 21:01 Total Protein 8.6 g/dL (6.6-8.7) 07/21/23 21:01 Albumin 4.1 g/dL (3.5-5.2) 07/21/23 21: Globulin 4.5 g/dL (1.3-4.6) 07/21/23 21:01 Urine Color Yellow (Yellow) 07/21/23 19:19 Urine Appearance Clear (CLEAR) 07/21/23 19:19 Urine pH 5 (5-7) 07/21/23 19:19 Ur Specific [place] 1.025 (1.005-1.030) 07/21/23 19:19 Urine Protein Neg (Negative) 07/21/23 19:19 Urine Glucose (UA) Norm (Normal) 07/21/23 19:19 Urine Ketones Negative (Negative) 07/21/23 19:19 Urine Blood Neg (Negative) 07/21/23 19:19 Urine Nitrate Negative (Negative) 07/21/23 19:19 Urine Bilirubin Neg (Negative) 12/04/23 19:19 Urine Urobilinogen Norm mg/dL (Negative) 07/21/23 19:19 Ur Leukocyte Esterase Negative (Negative) 07/21/23 19:19 All radiology interpretation(s) finalized by discharge Discharge Plan Discharge Patient Disposition: Home Clinical Impression: Gastroenteritis Condition: Stable Prescriptions: New dicyclomine 10 mg capsule 10 mg PO QID PRN (Reason: abdominal pain) Qty: 20 0RF No Action celecoxib [Celebrex] 100 mg capsule 100 mg PO DAILY PRN (Reason: pain) Qty: 30 1RF amlodipine 5 mg tablet 5 mg PO DAILY albuterol sulfate 90 mcg/actuation HFA aerosol inhaler 2 inh inhalation Q4H PRN (Reason: shortness of breath or wheezing) Qty: 6.7 0RF prednisone 20 mg tablet 60 mg PO DAILY 5 Days Qty: 15 0RF azithromycin [Zithromax] 500 mg tablet 500 mg PO DAILY 5 Days Qty: 5 0RF hydroxychloroquine 200 mg tablet See Rx Instructions PO .COMPLEX Qty: 45 3RF Rx Instructions: Alternate taking 1 tab today then 2 tabs tomorrow. PO; famotidine 20 mg tablet See Rx Instructions .ROUTE .COMPLEX Qty: 30 0RF Dose Instruction: TAKE 1 TABLET BY MOUTH EVERY DAY Rx Instructions: TAKE 1 TABLET BY MOUTH EVERY DAY Discharge Orders: Discharge ED (Routine); Ordered 07/21/23 Ordered By: Daniela Barnett Referrals: Kevan Ray DO [Primary Care Provider] - Discharge Diet: As Directed Discharge Activity: Increase activity as tolerated Patient Instructions: Gastroenteritis (ED) Activity Restrictions/Additional Instructions: Lab work today showed no acute concerns. Urinalysis revealed no acute concerns. Your CT examination revealed several incidental findings including slightly enlarged prostate and enlarged gallbladder. You also have signs of air trapping similar to those findings and asthma noted in your lower lungs on the scan. However, I believe your symptoms are due to findings of inflammation of both your stomach and the small intestine. This is referred to as a gastroenteritis which is typically due to a virus. I am providing you medication to help with this kind of discomfort during this time but encourage you to stick to a clear liquid diet and progress into a brat diet-bananas rice applesauce and toast. You can start advancing your diet after couple of days to see if your pain and discomfort improved. However, if you spike a fever, begin vomiting, have any dark tarry or bloody stool, or have any change or worsening in your pain we do recommend you be seen and reevaluated. 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
[2023-07-21 19:51] LABS: Add Urine Microscopic? NO; Charge for UA Resulting for Rev
[2023-07-21 19:54] LABS: Urine Appearance Clear (CLEAR); Urine Color Yellow (Yellow); pH Urine 5 (5-7)
[2023-07-21 19:55] LABS: Bilirubin Urine Neg (Negative); Blood Urine Neg (Negative); Glucose Urine UA Norm (Normal); Ketones Urine Negative (Negative); Leukocyte Esterase Urine Negative (Negative); Nitrate Urine Negative (Negative); Protein Urine Neg (Negative); Specific Gravity, Urine 1.025 (1.005-1.030); Urobilinogen Urine Norm (Negative)
[2023-07-21] MEDS: ketorolac 30 mg/mL INJ IVP (20:14)
[2023-07-21 20:21] LABS: Basophils # 0.1 10^3/uL (0.0-0.1); Basophils % 1.7 %; Eosinophils # 0.2 10^3/uL (0.0-0.8); Eosinophils % 2.9 %; Hematocrit 42.3 % (37-53); Lymphocytes # 2.7 10^3/uL (0.8-4.8); Lymphocytes % 46.4 %; Mean Corpuscular HGB Conc 33.8 g/dL (30-55); Mean Corpuscular Hemoglobin 30.8 pg (27-33); Mean Corpuscular Volume 91.2 fl (82-101); Mean Platelet Volume 11.9 fL (7.4-10.4); Monocytes # 0.7 10^3/uL (0.2-0.9); Monocytes % 12.7 %; Neutrophils # 2.09 10^3/uL (1.8-7.7); Nucleated Red Blood Cells % 0 %; Platelet Count 218 10^3/cmm (157-399); Red Blood Count 4.64 10^6/uL (3.85-5.65); Red Cell Distribution Width 19.9 % (12.1-15.1); White Blood Count 5.82 10^3/uL (3.29-11.43)
[2023-07-21 20:52] VITALS: BP 122/67; PULSE 69; O2SAT 94
[2023-07-21 20:55] LABS: Slide Review Slide Review Perform
[2023-07-21 21:28] LABS: Alanine Aminotransferase 51 U/L (0-41); Albumin Level 4.1 g/dL (3.5-5.2); Alkaline Phosphatase 58 U/L (40-130); Anion Gap 14.8 (5-19); Aspartate Amino Transferase 37 U/L (0-40); Blood Urea Nitrogen 12 mg/dL (6-20); Calcium 9.6 mg/dL (8.5-10.5); Carbon Dioxide 25 mmol/L (22-29); Chloride 101 mmol/L (98-107); Globulin 4.5 g/dL (1.3-4.6); Glomerular Filtration Rate 81.6 mL/min (90-130); Glucose 98 mg/dL (65-115); Osmolality Calculated 284 mOsm/kg (285-295); Potassium 3.8 mmol/L (3.5-5.1); Sodium 137 mmol/L (136-145); Total Bilirubin 0.4 mg/dL (0.15-1.2); Total Protein 8.6 g/dL (6.6-8.7)
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
[2023-07-21] MEDS: iohexol 350 mg/mL 500 mL Btl (per mL) IV (22:07)
[2023-07-21] MEDS: sodium chloride 0.9% 1,000 ML 999 ML IV (22:20)
[2023-07-21] MEDS: dicyclomine 20 mg Tablet PO (22:53)
[2023-07-21 23:16] VITALS: BP 141/87; PULSE 79; RESP 16; O2SAT 97
== END 2023-07-21 23:16 | disposition home or self-care (01) ==
PROVIDERS: Emergency Provider Physician Assistant; PCP Internal Medicine
DX: K52.9 Noninfective gastroenteritis and colitis, unspecified (principal)
CPT/HCPCS: 36415; 74177; 80053; 81003; 85025; 96374; 99285; J1885; J7030; Q9967

== ENCOUNTER 2023-08-02 18:49 | Emergency (ER) | payer OTHER, SELFPAY ==
[2023-08-02 18:54] VITALS: BP 161/120; PULSE 73; RESP 14; TEMP 36.7; O2SAT 98
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
--- NOTE | 2023-08-02 19:46 | CTR_ITS ---
PROCEDURE INFORMATION: Exam: CT Abdomen And Pelvis Without Contrast Exam date and time: 08/02/2023 7:55 PM Age: 42 years old Clinical indication: Abdominal pain; Prior surgery; Surgery date: 6+ months; Surgery type: Bowel resection. Splenectomy. Appy. Patient HX: C/O left flank pain TECHNIQUE: Imaging protocol: Computed tomography of the abdomen and pelvis without contrast. Radiation optimization: All CT scans at this facility use at least one of these dose optimization techniques: automated exposure control; mA and/or kV adjustment per patient size (includes targeted exams where dose is matched to clinical indication); or iterative reconstruction. REPORTING DATA: Count of CT and Cardiac NM exams in prior 12 months: This patient has received [address] and 0 known cardiac nuclear medicine studies in the 12 months prior to the current study. COMPARISON: CT abdomen pelvis w con* [id number] 07/21/2023 10:03 PM RADIATION DOSE METRICS: Total DLP (mGy-cm): 968.98 FINDINGS: Diaphragm: Small hiatal hernia. Liver: Hepatic steatosis. Gallbladder and bile ducts: Gallbladder is somewhat prominent, ultrasound could further evaluate this as clinically indicated. Pancreas: Normal. No ductal dilation. Spleen: Spleen is absent. Adrenal glands: Normal. No mass. Kidneys and ureters: Normal. No hydronephrosis. Stomach and bowel: Prominent fluid in the small bowel without dilation may reflect an enteritis. Constipation. Appendix: No evidence of appendicitis. Intraperitoneal space: Unremarkable. No free air. No significant fluid collection. Vasculature: Unremarkable. No abdominal aortic aneurysm. Lymph nodes: Unremarkable. No enlarged lymph nodes. Urinary bladder: Unremarkable as visualized. Reproductive: Nodular prostate gland enlargement. Bones/joints: L5 vertebral body chronic compression fracture without retropulsion of bony fragments. Soft tissues: Unremarkable. CT/CT kidney stone [id number] IMPRESSION: 1. Prominent fluid in the small bowel without dilation may reflect an enteritis. 2. Nodular prostate gland enlargement. 3. L5 vertebral body chronic compression fracture without retropulsion of bony fragments. 4. Spleen is absent. 5. Hepatic steatosis. 6. Gallbladder is somewhat prominent, ultrasound could further evaluate this as clinically indicated. 7. Small hiatal hernia. 8. Constipation.
[2023-08-02 19:50] LABS: Basophils # 0.1 10^3/uL (0.0-0.1); Basophils % 1.4 %; Eosinophils # 0.1 10^3/uL (0.0-0.8); Eosinophils % 1.9 %; Hematocrit 45.9 % (37-53); Lymphocytes # 2.2 10^3/uL (0.8-4.8); Lymphocytes % 31.1 %; Mean Corpuscular HGB Conc 33.1 g/dL (30-55); Mean Corpuscular Hemoglobin 31.5 pg (27-33); Mean Corpuscular Volume 95.2 fl (82-101); Mean Platelet Volume 11.8 fL (7.4-10.4); Monocytes % 14.4 %; Neutrophils # 3.63 10^3/uL (1.8-7.7); Neutrophils % 50.4 %; Nucleated Red Blood Cells % 0 %; Platelet Count 88 10^3/cmm (157-399); Red Blood Count 4.82 10^6/uL (3.85-5.65); Red Cell Distribution Width 14.2 % (12.1-15.1); White Blood Count 7.21 10^3/uL (3.29-11.43)
[2023-08-02 20:11] LABS: Add Urine Microscopic? NO; Charge for UA Resulting for Rev
[2023-08-02 20:20] LABS: Alanine Aminotransferase 50 U/L (0-41); Albumin Level 4.3 g/dL (3.5-5.2); Alkaline Phosphatase 66 U/L (40-130); Blood Urea Nitrogen 11 mg/dL (6-20); Calcium 10.5 mg/dL (8.5-10.5); Carbon Dioxide 25 mmol/L (22-29); Chloride 99 mmol/L (98-107); Globulin 5.4 g/dL (1.3-4.6); Glomerular Filtration Rate 73.1 mL/min (90-130); Glucose 102 mg/dL (65-115); Lipase 34 U/L (13-60); Osmolality Calculated 282 mOsm/kg (285-295); Sodium 136 mmol/L (136-145); Total Bilirubin 0.5 mg/dL (0.15-1.2); Total Protein 9.7 g/dL (6.6-8.7)
[2023-08-02 20:21] LABS: Anion Gap 16.1 (5-19); Aspartate Amino Transferase 36 U/L (0-40); Potassium 4.1 mmol/L (3.5-5.1)
[2023-08-02 20:23] LABS: Slide Review Slide Review Perform
[2023-08-02 20:47] LABS: Bilirubin Urine Neg (Negative); Blood Urine Neg (Negative); Glucose Urine UA Norm (Normal); Ketones Urine Negative (Negative); Leukocyte Esterase Urine Negative (Negative); Nitrate Urine Negative (Negative); Protein Urine Neg (Negative); Specific Gravity, Urine 1.015 (1.005-1.030); Urine Appearance Clear (CLEAR); Urine Color Yellow (Yellow); Urobilinogen Urine Norm (Negative); pH Urine 6 (5-7)
[2023-08-02] MEDS: ondansetron 2 mg/ML SDV 2 mL 4 MG IVP (21:19)
[2023-08-02] MEDS: ketorolac 30 mg/mL INJ IVP (21:20)
[2023-08-02 21:22] VITALS: RESP 14; O2SAT 95
[2023-08-02] MEDS: morphine 4 mg/mL SDV 1 mL IVP (21:22)
[2023-08-02 21:43] VITALS: BP 147/95; PULSE 78; O2SAT 96
[2023-08-02] MEDS: oxyCODONE-APAP 5-325 mg Tablet 2 TAB PO (22:06)
== END 2023-08-02 22:12 | disposition home or self-care (01) ==
PROVIDERS: Emergency Provider Emergency Medicine; PCP Internal Medicine
DX: K59.00 Constipation, unspecified (principal); D69.1 Qualitative platelet defects; K76.0 Fatty (change of) liver, not elsewhere classified; K44.9 Diaphragmatic hernia without obstruction or gangrene
CPT/HCPCS: 36415; 74176; 80053; 81003; 83690; 85025; 86140; 96374; 96375; 99285; J1885; J2270; J2405

== ENCOUNTER 2025-05-18 08:15 | Outpatient (CLI) | payer OTHER, SELFPAY ==
[2025-05-18 08:35] VITALS: BMI 33.7
--- NOTE | 2025-05-18 08:38 | NMCV_ITS ---
NM pardeep perf SPECT r/s* [id number] Larry De La Cruz Age: 44 Gender: M : 1980 Exam Date: 05/18/2025 09:30 Ordering Phys: Trent Bruner MD Technologist: RUTH Bunch Exam Location: [facility] Indications: cp STRESS TEST Please see separate stress test report in [facility] for full findings IMAGE PROTOCOL Rest/Stress 1 Exercise Day Radiopharmaceutical Dose (mCi) Administration Site Administered by Rest: Tc-99m 10.5 IV RUTH Fischer Sestamibi Stress:Tc-99m 32.9 IV RUTH Bunch Sestamiselene Rest: 18-May-2025 60 Discovery 630 Stress: 18-May-2025 15 Discovery 630 Radiopharmaceutical was injected at 88 % maximum heart rate. Images obtained in supine and prone position. SPECT RESULTS Technical Quality: Good Raw Data Analysis: Normal Image Corrections: No attenuation or motion correction applied Summed Stress Score: 0 Summed Rest Score: 0 Summed Difference Score: 0 PERFUSION FINDINGS Uniform myocardial tracer uptake. No significant perfusion abnormalities FUNCTIONAL RESULTS (calculated via Gated SPECT) Stress Image LV EF (%): 72 Stress EDV (mL):0 TID: 0.63 Stress ESV (mL):28 FUNCTIONAL FINDINGS: Segmental wall motion analysis revealing no gross wall motion abnormalities IMPRESSIONS 1. Myocardial perfusion imaging revealing uniform tracer uptake with no significant perfusion abnormalities 2. Normal LV ejection fraction of 72% 3. LV wall motion analysis revealing no gross wall motion abnormalities. 4. Normal LV volume Low probability for coronary ischemia, based on the above findings Dr Jaya Arredondo MD FACC (Electronically Signed) Final Date: 19 May 2025 08:41 S
--- NOTE | 2025-05-18 08:38 | ECG_ITS ---
[facility]: 2025-[facility]18 Pat Name: Larry De La Cruz Department: Room: Gender: Male Ambulance Dispatcher: : 1980 Requested By: Trent Bruner Order Number: [id number] Cedeno MD: Jaya Arredondo M.D. Interpretive Statements Lung unchanged pre/post procedure; Intraprocedure shortess of breath; Symptoms resoled by discharge PROCEDURE: At the baseline, the patient's blood pressure was 149/94 with a heart rate of 67. The baseline electrocardiogram showed normal sinus rhythm with normal ST-Ts.. The patient exercised for 8 minutes on a standard Omar protocol. Patient attained a maximum heart rate of 160 beats per minute(91% of the maximum predicted heart rate) with a blood pressure at the peak exercise of 204/108 mm Hg. The EKG at the peak exercise revealed no significant change. Patient did not have any chest pain or any significant cardiac arrhythmias with the exercise During the recovery phase, there were no new changes. Blood pressure at the end of the recovery phase was 138/73 mm Hg with a heart rate of 99 per minute. CONCLUSION: 1. No significant EKG changs with the treadmill exercise 2. No exercise-induced chest pain or cardiac arrhythmia 3. Hypertensive response to exercise 4. Fair exercise tolerance, attained a maximum of 10.2 METs Electronically Signed On 05-22-2025 21:14:40 CDT by Jaya Arredondo M.D. [email or web address]
[2025-05-18 10:25] VITALS: BP 144/78; PULSE 98
== END 2025-05-18 08:16 | disposition home or self-care (01) ==
PROVIDERS: PCP Family Medicine; Visit Provider Family Medicine
DX: R07.9 Chest pain, unspecified (principal); I49.8 Other specified cardiac arrhythmias
CPT/HCPCS: 36415; 78452; 93017; A9500